=== PATIENT | female | born 1990 | race Caucasian/White ===

== ENCOUNTER 2020-12-27 20:47 | Emergency (ER) | payer OTHER ==
[~2020-12-27] VITALS: Ht 157.5 cm; Wt 50.0 kg
[2020-12-27 20:53] VITALS: BP 111/72
[2020-12-27] MEDS ORDERED: CYCL10TA2 PO (22:15)
[2020-12-27] MEDS ORDERED: DIPH,PERTUSS(ACELL),TET VAC/PF 0.5 ML SYRINGE. VAX IM ONE (22:15)
--- NOTE | 2020-12-27 22:15 | ED.ADGEN ---
Past Medical History Past Medical History: No Pertinent History Past Surgical History: No Surgical History Smoking Status: Current Every Day Smoker Additional Information: VAPES Alcohol Use: Occasionally General Adult EDM: Chief Complaint: HEAD INJURY/TRAUMA HPI: HPI: Patient is a 30 year old female who presents to the emergency department with complaints of increased irritability, headache, difficulty concentrating, fatigue, and popping in her ears after she hit her head on a beam at work on December 24, 2020. Patient denies any loss of consciousness, vomiting, vision changes, numbness, tingling, weakness, disorientation, or dizziness since the injury. She states that the headache did not develop until 24 hours after the head injury. She reports that the headache is behind her left eye it feels like previous migraines. Patient reports nausea, she denies any abdominal pain, chest pain, palpitations, fever, body aches, or rash. She currently rates the pain a 7 out of 10 on the pain scale, she states it is located behind her left eye. She denies any alleviating or exacerbating factors. Review of Systems: Review of Systems: Complete ROS is negative unless otherwise noted in HPI. Allergies: Allergies: Allergies Coded Allergies Type Severity Reaction Last Updated Verified No Known Drug Allergies 12/27/20 No Physical Exam: PE: See Above Constitutional: Well developed, well nourished, no acute distress, non-toxic appearance. [] HENT: Normocephalic, atraumatic, bilateral external ears normal, bilateral TMs normal, nose normal. [] Eyes: PERRLA, EOMI, conjunctiva normal, no discharge, no nystagmus. [] Neck: Normal range of motion, no stridor, no bony tenderness, left paraspinal cervical tenderness to palpation, [] Cardiovascular:Heart rate regular rhythm Lungs & Thorax: Respirations even and unlabored, no retractions, no respiratory distress Skin: Warm, dry, no erythema, no rash; scabbed abrasion to right superior forehead, no bleeding, no erythema, no edema. [] Extremities: No cyanosis, ROM intact, no edema. [] Neurologic: Alert and oriented X 3, normal motor, normal sensory, no focal deficits noted. [] Psychologic: Affect normal, judgement normal, mood normal. [] Current Patient Data: Vital Signs: Vital Signs Date Time Temp Pulse Resp B/P (MAP) Pulse Ox O2 Delivery O2 Flow Rate FiO2 12/27/20 20:53 98.8 59 17 111/72 (85) 100 Room Air 98.8 EKG: EKG: [] Heart Score: C/O Chest Pain: No Radiology/Procedures: Radiology/Procedures: [] Course & Med Decision Making: Course & Med Decision Making Pertinent Labs and Imaging studies reviewed. (See chart for details) Patient is a 30-year-old female who presented to emergency department for evaluation of closed head injury with multiple post injury symptoms. Patient declined medications for relief of her headache. I advised her that the symptoms she is experiencing could be related to mild concussion or she could just be experiencing a migraine. According to the [place] head CT rule, no CT is recommended. I encouraged patient to go home and rest in a calm environment, and limit exposure to screens and electronics. Follow-up with your doctor on Wednesday if symptoms continue. Prescription written for Flexeril recommended application of ice or heat to sore areas as needed for comfort. Return to the ER if symptoms worsen or fever develops. Patient verbalized an understanding of home care, medications, follow-up, and return to ED instructions and was in agreement with the plan of care. [] Dragon Disclaimer: Dragon Disclaimer: This electronic medical record was generated, in whole or in part, using a voice recognition dictation system. Departure Departure Impression: Primary Impression: Closed head injury without loss of consciousness Additional Impressions: Forehead abrasion Need for Tdap vaccination Migraine headache Disposition: HOME / SELF CARE / HOMELESS Condition: STABLE Patient Instructions: Head Injury, Adult, [id number], Migraine Headache, [id number], VIS, Tetanus, Diphtheria (Td); Tetanus, Diphtheria, Pertussis (Tdap) - CDC Additional Instructions: Fill the prescription and use it as directed. Tylenol or ibuprofen as needed for pain. Follow the head injury precautions provided. go home and rest in a calm environment, and limit exposure to screens and electronics. Recommend application of ice or heat to sore areas as needed for comfort. Return to the ER if symptoms worsen or fever develops. Follow-up with your primary care doctor next week for reevaluation.. Adalberto [facility] [address] [place], [place] [id number] [facility] [address] [place] [id number] [facility] [address] [place] [address] [facility] [address] [place] [address] [facility] [address] [place] [address] [facility] [address] [place] [address] [facility] [place] [address] [place] [address] [facility] [address] [place] [address] [facility] [address] [place] [address] [facility] [address] [place] [address] Scripts Cyclobenzaprine Hcl (CYCLOBENZAPRINE HCL) 10 Mg Tablet 1 TAB PO TID PRN for PAIN, #30 TAB 0 Refills Prov: JOHN GARCIA TELECOMMUNICATIONS ADMINISTRATOR 12/27/20 Problem Qualifiers Primary Impression: Closed head injury without loss of consciousness Encounter type: initial encounter Qualified Codes: S09.90XA - Unspecified injury of head, initial encounter Additional Impressions: Forehead abrasion Encounter type: initial encounter Qualified Codes: S00.81XA - Abrasion of other part of head, initial encounter Migraine headache Migraine type: unspecified Status migrainosus presence: without status migrainosus Intractability: intractable Qualified Codes: G43.919 - Migraine, unspecified, intractable, without status migrainosus JOHN GARCIA TELECOMMUNICATIONS ADMINISTRATOR Dec 27, 2020 22:15
== END 2020-12-27 22:28 | disposition home or self-care (01) ==
LOC: ER 20:47
DX: S00.81XA Abrasion of other part of head, initial encounter (principal); G43.909 Migraine, unspecified, not intractable, without status migrainosus; F17.200 Nicotine dependence, unspecified, uncomplicated; W22.8XXA Striking against or struck by other objects, initial encounter; Y93.89 Activity, other specified; Y92.69 Other specified industrial and construction area as the place of occurrence of the external cause; Y99.0 Civilian activity done for income or pay
CPT/HCPCS: 90471; 90715; 99283-25